=== PATIENT | male | born 1975 | race Caucasian/White ===

== ENCOUNTER 2018-04-03 06:13 | Emergency (ER) | payer MEDICAID ==
[2018-04-03 06:36] VITALS: BP 110/74
[2018-04-03] MEDS ORDERED: diphenhydrAMINE 50 MG/ML SDV IM ONE (06:52)
[2018-04-03] MEDS ORDERED: methylPREDNISolone Sodium Succinate 125 MG/2 ML SDV IM ONE (06:53)
--- NOTE | 2018-04-03 07:00 | EDM.PDOC ---
ED HPI GENERAL MEDICAL PROBLEM - General Chief Complaint: General Stated Complaint: THINKS HE GOT IN TO BUGS Time Seen by Provider: 04/03/18 06:52 Source of Information: Reports: Patient History Limitations: Reports: Other (This is an aggressive acting patient says "f'ing this" and "f'ing"that. He acts like we don't want to take care of him. Nurses called the police.) - History of Present Illness INITIAL COMMENTS - FREE TEXT/NARRATIVE: This patient said that shortly before coming in he opened a box tools he said it seemed like there was some pollen or dust or something that flew out of it and get him. He complains of burning eyes bumps on his face he said his mouth is burning feels like it's closing up feels like his he's having some trouble breathing. He says his skin is burning also all over and his hands are burning and swelling. Symptoms sound little bit like he could be having an acute allergic reaction or urticaria. Patient is aggressive acting and it limits our ability to get a history from him bilateral fingers Pain Score (Numeric/FACES): 2 right eye Pain Score (Numeric/FACES): 2 - Related Data Allergies Allergy/AdvReac Type Severity Reaction Status Date / Time egg AdvReac Diarrhea Verified 10/24/16 13:31 Home Meds: Home Meds Carbidopa/Levodopa [Carbidopa-Levodopa 25-250] 1 tab PO BEDTIME 07/22/16 [ History] Dextroamphetamine/Amphetamine [Amphetamine Salts] 20 mg PO TID 07/22/16 [History ] FLUoxetine [PROzac] 40 mg PO QAM 07/22/16 [History] Omeprazole 40 mg PO QAM 07/22/16 [History] QUEtiapine Fumarate [Quetiapine Fumarate] 100 mg PO BEDTIME 07/22/16 [History] clonazePAM [Clonazepam] 1 mg PO BID 07/22/16 [History] Acetaminophen [Tylenol Extra Strength] 1,000 mg PO Q6H PRN 07/27/16 [History] Ibuprofen 400 mg PO Q4H PRN 07/27/16 [History] Past Medical History Gastrointestinal History: Reports: GERD Musculoskeletal History: Reports: Fracture Neurological History: Reports: Other (See Below) Other Neuro History: restless legs Psychiatric History: Reports: Addiction, Anxiety, Panic Attack - Past Surgical History HEENT Surgical History: Reports: Naso-Sinus Surgery Social & Family History - Family History Family Medical History: Noncontributory - Caffeine Use Caffeine Use: Reports: Coffee ED ROS GENERAL - Review of Systems Review Of Systems: Unable To Obtain (Unable to do review of systems in this uncooperative patient) Constitutional: Reports: Other (This is a slightly agitated angry patient) ED EXAM, GENERAL - Physical Exam Exam: See Below Exam Limited By: Combative/Threatening General Appearance: Alert, Other (Anxious and agitated) Eye Exam: Bilateral Eye: Conjunctival Injection (Slight injection bilaterally) Throat/Mouth: Other (Slight pharyngeal erythema is seen in smokers) Respiratory/Chest: Lungs Clear Cardiovascular: Regular Rate, Rhythm Neurological: Alert, Other (Patient looks like he may be a methamphetamine abuser) Skin Exam: Other (There could be some slight generalized erythema. No rash or wheals are seen) Course - Vital Signs Last Recorded V/S: Last Vital Signs Temp 37.7 C 04/03/18 06:31 Pulse 87 04/03/18 06:31 Resp 20 04/03/18 06:31 BP 110/74 04/03/18 06:31 Pulse Ox 97 04/03/18 06:31 - Orders/Labs/Meds Meds: Medications Discontinued Medications Generic Name Dose Route Start Last Admin Trade Name Yareli PRHaroon Reason Stop Dose Admin Diphenhydramine HCl 50 mg 04/03/18 06:52 04/03/18 07:22 Benadryl IM 04/03/18 06:53 Not Given ONETIME ONE Methylprednisolone Sodium Succinate 125 mg 04/03/18 06:53 04/03/18 07:22 Solu-Medrol IM 04/03/18 06:54 Not Given ONETIME ONE - Re-Assessments/Exams Free Text/Narrative Re-Assessment/Exam: 04/03/18 07:33 this patient refused an injection of Benadryl and Solu-Medrol. Please arrived. We avoided any kind of confrontation with this patient. He demanded that he be reexamined in a dislocated his eyes again I offered some drops such as antihistamine but he refused that. Eventually he refused all treatment and left without further incident. The police advised us on his previous history of incarceration drug use attempted murder and so forth and advised that that they try to avoid any confrontation with this patient since I know it will escalate rapidly. Departure - Departure Time of Disposition: 07:30 Disposition: Against Medical Advice 07 Condition: Fair Clinical Impression: Methamphetamine abuse, Methamphetamine - Discharge Information Referrals: PCP,None [Primary Care Provider] - Forms: ED Department Discharge Additional Instructions: This patient refused treatment and left AGAINST MEDICAL ADVICE.
== END 2018-04-03 08:33 | disposition left against medical advice (07) ==
LOC: JP.ED 06:13
DX: F15.10 Other stimulant abuse, uncomplicated (principal); K21.9 Gastro-esophageal reflux disease without esophagitis; Z79.899 Other long term (current) drug therapy; Z91.012 Allergy to eggs
CPT/HCPCS: 99283

== ENCOUNTER 2023-07-10 15:12 | Emergency (ER) | payer MEDICAID ==
[2023-07-10] MEDS ORDERED: Haloperidol 5 MG Tab PO ONE (15:17)
[2023-07-10] MEDS ORDERED: diphenhydrAMINE 50 MG/ML SDV IVPUSH ONE (15:17)
[2023-07-10] MEDS ORDERED: Scopolamine 1.5 MG Transdermal Patch TOP ONE (15:27)
[2023-07-10] MEDS ORDERED: Haloperidol Lactate 5 MG/ML SDV IVPUSH ONE ×2 (15:29→17:51)
[2023-07-10 15:33] LABS: BASOPHILS ABSOLUTE AUTO 0.06 K/uL (0.00-0.10); BASOPHILS PERCENT AUTO 0.7 % (0.1-1.3); EOSINOPHILS ABSOLUTE AUTO 0.28 K/uL (0.00-0.40); EOSINOPHILS PERCENT AUTO 3.3 % (0.0-5.4); HEMATOCRIT 41.5 % (38.4-49.7); IMMATURE GRAN ABSOLUTE AUTO 0.05 K/uL (0.00-0.23); IMMATURE GRAN PERCENT AUTO 0.6 % (0.0-0.7); LYMPHOCYTES ABSOLUTE AUTO 3.15 K/uL (0.8-3.3); LYMPHOCYTES PERCENT AUTO 36.7 % (11.4-47.7); MEAN CORPUSCULAR HGB CONC 33.7 g/dL (31.6-35.5); MEAN CORPUSCULAR VOLUME 91.8 fL (81.4-99.0); MONOCYTES ABSOLUTE AUTO 0.72 K/uL (0.20-0.90); MONOCYTES PERCENT AUTO 8.4 % (3.3-12.6); NEUTROPHILS ABSOLUTE AUTO 4.32 K/uL (1.0-7.6); NEUTROPHILS PERCENT AUTO 50.3 % (40.0-78.1); PLATELET COUNT,PLT 317 K/uL (130-375); RED BLOOD CELL COUNT 4.52 M/uL (4.14-5.76); WHITE BLOOD CELL COUNT,WBC 8.6 K/uL (3.2-11.0)
[2023-07-10 15:43] LABS: A/G RATIO 0.9 (1.2-2.2); ALANINE AMINOTRANSFERASE,ALT 32 U/L (12-78); ALBUMIN 3.7 g/dL (3.4-5.0); ALKALINE PHOSPHATASE 109 U/L (46-116); ASPARTATE AMNIOTRANSFERASE,AST 85 U/L (15-37); BILIRUBIN TOTAL 0.7 mg/dL (0.2-1.0); BLOOD UREA NITROGEN,BUN 16 mg/dL (7-18); CHLORIDE,CL 98 mmol/L (100-108); CREATININE 1.8 mg/dL (0.8-1.3); ESTIMATED GFR 46 mL/min (>60); GLUCOSE RANDOM 180 mg/dL (74-106); POTASSIUM,K 4.2 mmol/L (3.6-5.2); PROTEIN TOTAL,TP 7.7 g/dL (6.4-8.2); SODIUM,NA 139 mmol/L (140-148)
[2023-07-10 15:44] LABS: ANION GAP 30.2 mmol/L (5.0-14.0); CARBON DIOXIDE,CO2 15 mmol/L (21-32)
[2023-07-10] MEDS ORDERED: Sodium Chloride 0.9% 1,000 ML IV ONE ×2 (16:19→18:03)
[2023-07-10] MEDS ORDERED: Sodium Bicarbonate 8.4% 50 MEQ/50 ML Syringe IVPUSH ONE (16:20)
[2023-07-10] MEDS ORDERED: LORazepam 2 MG/ML SDV ONE (18:12)
[2023-07-10 18:31] LABS: T4 FREE 0.89 ng/dL (0.76-1.46); TSH ULTRASENSITIVE 0.92 uIU/mL (0.358-3.740)
[2023-07-10 18:32] LABS: BASE EXCESS VENOUS -1.9 mm/L; BICARBONATE,VENOUS 23.2 mmol/L; CARBOXYHEMOGLOBIN 2.9 % (0.0-1.6); METHEMOGLOBIN 0.8 %; O2 SATURATION VENOUS 90.3; PCO2 VENOUS 42.8 mm/Hg; PH,VENOUS 7.353 (7.350-7.450); PO2 VENOUS 68.8 mm/Hg; TOTAL HEMOGLOBIN 14.2 g/dL (13.5-18.0)
[2023-07-10] MEDS ORDERED: LORazepam 2 MG/ML SDV IVPUSH ONE (18:48)
[2023-07-10] MEDS ORDERED: droPERidol 5 MG/2 ML SDV IVPUSH ONE (20:00)
[2023-07-10] MEDS ORDERED: LORazepam 2 MG/ML SDV IVPUSH PRN ×2 (20:19→20:20)
[2023-07-10 20:30] LABS: AMPHETAMINES SCREEN, URINE PRESUMPTIVE POSITIVE (NEGATIVE); BARBITURATE SCREEN,URINE NEGATIVE (NEGATIVE); BENZODIAZEPINES SCREEN,URINE NEGATIVE (NEGATIVE); METHADONE SCREEN, URINE NEGATIVE (NEGATIVE); METHAMPHETAMINES SCREEN, URINE PRESUMPTIVE POSITIVE (NEGATIVE); OXYCODONE SCREEN,URINE NEGATIVE (NEGATIVE); PROPOXYPHENE SCREEN,URINE NEGATIVE (NEGATIVE); THC SCREEN,URINE 50 NG/ML PRESUMPTIVE POSITIVE (NEGATIVE)
[2023-07-11 06:25] LABS: ANION GAP 14.8 mmol/L (5.0-14.0); BLOOD UREA NITROGEN,BUN 24 mg/dL (7-18); CALCIUM 8.6 mg/dL (8.5-10.1); CARBON DIOXIDE,CO2 23 mmol/L (21-32); CHLORIDE,CL 105 mmol/L (100-108); CREATININE 2.3 mg/dL (0.8-1.3); ESTIMATED GFR 34 mL/min (>60); GLUCOSE RANDOM 88 mg/dL (74-106); SODIUM,NA 143 mmol/L (140-148)
[2023-07-11] MEDS ORDERED: Sodium Chloride 0.9% 1,000 ML IV ONE (06:29)
[2023-07-11 06:55] LABS: APPEARANCE,URINE CLEAR (CLEAR); BILIRUBIN,URINE NEGATIVE (NEGATIVE); COLOR,URINE YELLOW (YELLOW); GLUCOSE,URINE NEGATIVE (NEGATIVE); KETONES,URINE NEGATIVE (NEGATIVE); LEUKOCYTE ESTERASE,URINE NEGATIVE (NEGATIVE); NITRITE,URINE NEGATIVE (NEGATIVE); OCCULT BLOOD,URINE MODERATE (NEGATIVE); PH,URINE 5.5 (5.0-8.0); PROTEIN,URINE 100 mg/dL (NEGATIVE); UROBILINOGEN,URINE 0.2 EU/dL (0.2-1.0)
[2023-07-11 07:05] LABS: AMORPHOUS SEDIMENT,URINE FEW; BACTERIA,URINE RARE; EPITHELIAL CELLS,URINE RARE; MUCUS,URINE FEW; RBC,URINE 0-5 (0-5); WBC,URINE 0-5 (0-5)
[2023-07-11] MEDS ORDERED: Sodium Chloride 0.9% 1,000 ML IV SCH (13:30)
[2023-07-11 13:52] VITALS: BP 138/85; PULSE 78
[2023-07-11 14:12] LABS: BASOPHILS ABSOLUTE AUTO 0.04 K/uL (0.00-0.10); BASOPHILS PERCENT AUTO 0.4 % (0.1-1.3); EOSINOPHILS ABSOLUTE AUTO 0.11 K/uL (0.00-0.40); HEMATOCRIT 41.8 % (38.4-49.7); HEMOGLOBIN 14.4 g/dL (12.9-16.9); IMMATURE GRAN ABSOLUTE AUTO 0.06 K/uL (0.00-0.23); IMMATURE GRAN PERCENT AUTO 0.5 % (0.0-0.7); LYMPHOCYTES ABSOLUTE AUTO 1.32 K/uL (0.8-3.3); LYMPHOCYTES PERCENT AUTO 12.1 % (11.4-47.7); MEAN CORPUSCULAR HEMOGLOBIN 30.8 pg (31.6-35.5); MEAN CORPUSCULAR HGB CONC 34.4 g/dL (31.6-35.5); MEAN CORPUSCULAR VOLUME 89.3 fL (81.4-99.0); MONOCYTES ABSOLUTE AUTO 1.15 K/uL (0.20-0.90); MONOCYTES PERCENT AUTO 10.5 % (3.3-12.6); NEUTROPHILS ABSOLUTE AUTO 8.24 K/uL (1.0-7.6); NEUTROPHILS PERCENT AUTO 75.5 % (40.0-78.1); PLATELET COUNT,PLT 237 K/uL (130-375); RED BLOOD CELL COUNT 4.68 M/uL (4.14-5.76); WHITE BLOOD CELL COUNT,WBC 10.9 K/uL (3.2-11.0)
[2023-07-11 14:42] LABS: ANION GAP 21.9 mmol/L (5.0-14.0); BLOOD UREA NITROGEN,BUN 24 mg/dL (7-18); CALCIUM 8.6 mg/dL (8.5-10.1); CARBON DIOXIDE,CO2 19 mmol/L (21-32); CHLORIDE,CL 105 mmol/L (100-108); CREATINE KINASE,CK 4021 U/L (39-308); CREATININE 2.5 mg/dL (0.8-1.3); ESTIMATED GFR 31 mL/min (>60); GLUCOSE RANDOM 81 mg/dL (74-106); POTASSIUM,K 3.9 mmol/L (3.6-5.2); SODIUM,NA 142 mmol/L (140-148)
[2023-07-11] MEDS ORDERED: LORazepam 2 MG/ML SDV IVPUSH ONE (16:27)
[2023-07-11] MEDS ORDERED: diphenhydrAMINE 50 MG/ML SDV IVPUSH ONE (16:28)
== END 2023-07-11 16:56 | disposition other institution (70) ==
LOC: JP.ED 15:12
DX: R45.1 Restlessness and agitation (principal); F15.10 Other stimulant abuse, uncomplicated; R45.6 Violent behavior; N17.9 Acute kidney failure, unspecified; M62.82 Rhabdomyolysis; Z79.899 Other long term (current) drug therapy; Z91.012 Allergy to eggs
CPT/HCPCS: 36415; 51702; 80048; 80053; 80305; 80307; 81001; 82550; 82803; 83605; 84439; 84443; 85025; 96361; 96374; 96375; 96376; 99285; A9270; J1200; J1630; J1790; J2060; J7030

== ENCOUNTER 2024-01-19 15:40 | Emergency (ER) | payer MEDICAID ==
[2024-01-19 15:51] VITALS: BP 155/93; PULSE 92
== END 2024-01-19 17:47 | disposition left against medical advice (07) ==
LOC: JP.ED 15:40
DX: Z53.21 Procedure and treatment not carried out due to patient leaving prior to being seen by health care provider (principal)

== ENCOUNTER 2024-02-24 19:04 | Emergency (ER) | payer MEDICAID ==
[2024-02-24 19:09] VITALS: BP 180/114; PULSE 113
[2024-02-24 19:44] LABS: APPEARANCE,URINE CLEAR (CLEAR); BILIRUBIN,URINE SMALL (NEGATIVE); COLOR,URINE YELLOW (YELLOW); GLUCOSE,URINE NEGATIVE (NEGATIVE); KETONES,URINE TRACE mg/dL (NEGATIVE); LEUKOCYTE ESTERASE,URINE NEGATIVE (NEGATIVE); NITRITE,URINE NEGATIVE (NEGATIVE); OCCULT BLOOD,URINE TRACE-INTACT (NEGATIVE); PROTEIN,URINE 100 mg/dL (NEGATIVE); UROBILINOGEN,URINE 0.2 EU/dL (0.2-1.0)
[2024-02-24 19:49] LABS: AMPHETAMINES SCREEN, URINE PRESUMPTIVE POSITIVE (NEGATIVE); BARBITURATE SCREEN,URINE NEGATIVE (NEGATIVE); BENZODIAZEPINES SCREEN,URINE NEGATIVE (NEGATIVE); METHADONE SCREEN, URINE NEGATIVE (NEGATIVE); METHAMPHETAMINES SCREEN, URINE PRESUMPTIVE POSITIVE (NEGATIVE); OXYCODONE SCREEN,URINE NEGATIVE (NEGATIVE); PROPOXYPHENE SCREEN,URINE NEGATIVE (NEGATIVE); THC SCREEN,URINE 50 NG/ML PRESUMPTIVE POSITIVE (NEGATIVE)
[2024-02-24 19:52] LABS: BACTERIA,URINE FEW; EPITHELIAL CELLS,URINE NOT SEEN; MUCUS,URINE FEW; RBC,URINE 0-5 (0-5); WBC,URINE 0-5 (0-5)
[2024-02-24 19:53] LABS: AMORPHOUS SEDIMENT,URINE NOT SEEN
== END 2024-02-24 20:26 ==
LOC: EDBD 19:04 → JP.ED 19:04 → MERGE 19:04 → JP.ED 20:26
DX: S60.221A Contusion of right hand, initial encounter (principal); F15.20 Other stimulant dependence, uncomplicated; W22.8XXA Striking against or struck by other objects, initial encounter
CPT/HCPCS: 73130-26-RT; 73130-RT; 80305-QW; 81001; 99284

== ENCOUNTER 2024-08-17 23:15 | Emergency (ER) | payer MEDICAID ==
[2024-08-17 23:36] LABS: BASOPHILS ABSOLUTE AUTO 0.06 K/uL (0.00-0.10); BASOPHILS PERCENT AUTO 0.4 % (0.1-1.3); EOSINOPHILS ABSOLUTE AUTO 0.24 K/uL (0.00-0.40); EOSINOPHILS PERCENT AUTO 1.5 % (0.0-5.4); HEMATOCRIT 39.6 % (38.4-49.7); HEMOGLOBIN 14.1 g/dL (12.9-16.9); IMMATURE GRAN ABSOLUTE AUTO 0.06 K/uL (0.00-0.23); IMMATURE GRAN PERCENT AUTO 0.4 % (0.0-0.7); LYMPHOCYTES ABSOLUTE AUTO 1.73 K/uL (0.8-3.3); LYMPHOCYTES PERCENT AUTO 11.1 % (11.4-47.7); MEAN CORPUSCULAR HEMOGLOBIN 31.9 pg (31.6-35.5); MEAN CORPUSCULAR HGB CONC 35.6 g/dL (31.6-35.5); MEAN CORPUSCULAR VOLUME 89.6 fL (81.4-99.0); MONOCYTES ABSOLUTE AUTO 0.88 K/uL (0.20-0.90); MONOCYTES PERCENT AUTO 5.7 % (3.3-12.6); NEUTROPHILS PERCENT AUTO 80.9 % (40.0-78.1); PLATELET COUNT,PLT 174 K/uL (130-375); RED BLOOD CELL COUNT 4.42 M/uL (4.14-5.76); WHITE BLOOD CELL COUNT,WBC 15.6 K/uL (3.2-11.0)
[2024-08-17 23:54] LABS: AMPHETAMINES SCREEN, URINE PRESUMPTIVE POSITIVE (NEGATIVE); BARBITURATE SCREEN,URINE NEGATIVE (NEGATIVE); BENZODIAZEPINES SCREEN,URINE NEGATIVE (NEGATIVE); METHADONE SCREEN, URINE NEGATIVE (NEGATIVE); METHAMPHETAMINES SCREEN, URINE PRESUMPTIVE POSITIVE (NEGATIVE); OXYCODONE SCREEN,URINE NEGATIVE (NEGATIVE); PROPOXYPHENE SCREEN,URINE NEGATIVE (NEGATIVE); THC SCREEN,URINE 50 NG/ML PRESUMPTIVE POSITIVE (NEGATIVE)
[2024-08-17 23:56] LABS: ALANINE AMINOTRANSFERASE,ALT 37 U/L (12-78); ALBUMIN 3.7 g/dL (3.4-5.0); ALKALINE PHOSPHATASE 85 U/L (46-116); ASPARTATE AMNIOTRANSFERASE,AST 46 U/L (15-37); BILIRUBIN TOTAL 0.6 mg/dL (0.2-1.0); BLOOD UREA NITROGEN,BUN 17 mg/dL (7-18); CALCIUM 9.3 mg/dL (8.5-10.1); CARBON DIOXIDE,CO2 26 mmol/L (21-32); CHLORIDE,CL 102 mmol/L (100-108); CREATININE 0.9 mg/dL (0.8-1.3); ESTIMATED GFR 104 mL/min (>60); GLUCOSE RANDOM 116 mg/dL (74-106); POTASSIUM,K 4.8 mmol/L (3.6-5.2); PROTEIN TOTAL,TP 7.4 g/dL (6.4-8.2); SODIUM,NA 137 mmol/L (140-148)
[2024-08-17 23:57] LABS: ANION GAP 13.8 mmol/L (5.0-14.0)
[2024-08-17] MEDS: chlorproMAZINE 25 MG Tab PO ONE (23:57)
[2024-08-18] MEDS: ClonazePAM 0.5 MG Tab PO ONE (02:11)
== END 2024-08-18 02:40 | disposition left against medical advice (07) ==
LOC: JP.ED 23:15
DX: F15.10 Other stimulant abuse, uncomplicated (principal); Z91.012 Allergy to eggs
CPT/HCPCS: 36415; 80053; 80305; 80307; 85025; 99284; A9270

== ENCOUNTER 2025-08-18 12:21 | Emergency (ER) | payer MEDICAID ==
[2025-08-18 14:18] LABS: BASOPHILS ABSOLUTE AUTO 0.06 K/uL (0.00-0.10); BASOPHILS PERCENT AUTO 0.6 % (0.1-1.3); EOSINOPHILS ABSOLUTE AUTO 0.23 K/uL (0.00-0.40); EOSINOPHILS PERCENT AUTO 2.3 % (0.0-5.4); IMMATURE GRAN ABSOLUTE AUTO 0.04 K/uL (0.00-0.23); IMMATURE GRAN PERCENT AUTO 0.4 % (0.0-0.7); LYMPHOCYTES ABSOLUTE AUTO 2.02 K/uL (0.8-3.3); LYMPHOCYTES PERCENT AUTO 20.4 % (11.4-47.7); MONOCYTES ABSOLUTE AUTO 0.55 K/uL (0.20-0.90); MONOCYTES PERCENT AUTO 5.5 % (3.3-12.6); NEUTROPHILS ABSOLUTE AUTO 7.02 K/uL (1.0-7.6); NEUTROPHILS PERCENT AUTO 70.8 % (40.0-78.1); PLATELET COUNT,PLT 271 K/uL (130-375); RED BLOOD CELL COUNT 4.93 M/uL (4.14-5.76); WHITE BLOOD CELL COUNT,WBC 9.9 K/uL (3.2-11.0)
[2025-08-18 14:41] LABS: A/G RATIO 1.0 (1.2-2.2); ALANINE AMINOTRANSFERASE,ALT 21 U/L (12-78); ASPARTATE AMNIOTRANSFERASE,AST 29 U/L (15-37); BILIRUBIN TOTAL 0.8 mg/dL (0.2-1.0); BLOOD UREA NITROGEN,BUN 14 mg/dL (7-18); CARBON DIOXIDE,CO2 26 mmol/L (21-32); CHLORIDE,CL 104 mmol/L (100-108); CREATININE 1.0 mg/dL (0.8-1.3); EST CRCL DRUG DOSING (CG) 93.08 mL/min; ESTIMATED GFR 91 mL/min (>60); GLUCOSE RANDOM 125 mg/dL (74-106); POTASSIUM,K 3.7 mmol/L (3.6-5.2); PROTEIN TOTAL,TP 7.6 g/dL (6.4-8.2); SODIUM,NA 142 mmol/L (140-148)
[2025-08-18 15:46] LABS: APPEARANCE,URINE SLIGHTLY CLOUDY (CLEAR); GLUCOSE,URINE NEGATIVE (NEGATIVE); OCCULT BLOOD,URINE TRACE-INTACT (NEGATIVE)
[2025-08-18 15:55] LABS: SQUAMOUS EPITHELIAL CELLS,UR RARE /HPF; UROTHELIAL CELLS,URINE NOT SEEN /HPF
[2025-08-18 15:56] LABS: AMPHETAMINES SCREEN, URINE NEGATIVE (NEGATIVE); METHADONE SCREEN, URINE NEGATIVE (NEGATIVE); METHAMPHETAMINES SCREEN, URINE NEGATIVE (NEGATIVE); OXYCODONE SCREEN,URINE NEGATIVE (NEGATIVE); PROPOXYPHENE SCREEN,URINE NEGATIVE (NEGATIVE); THC SCREEN,URINE 50 NG/ML PRESUMPTIVE POSITIVE (NEGATIVE)
[2025-08-18] MEDS: LORazepam 2 MG/ML SDV IM ONE (20:31)
[2025-08-19 15:02] VITALS: BP 182/106; PULSE 77
== END 2025-08-19 15:04 ==
LOC: JP.ED 12:21
DX: F29 Unspecified psychosis not due to a substance or known physiological condition (principal); F17.200 Nicotine dependence, unspecified, uncomplicated; R45.851 Suicidal ideations; Z91.0120 Allergy to eggs, unspecified
CPT/HCPCS: 36415; 80053; 80143; 80179; 80305; 80307; 81001; 85025; 96372; 99285; A9270; J2060